=== PATIENT | male | born 1980 | race Two or more races ===

== ENCOUNTER → 2016-03-24 | Outpatient (CLI) | payer BC ==
[~2016-03-24] MED LIST: CONTRAST GIVEN MC PRN; IOHEXOL 240 MG/ML 50ML VIAL. PO ONE
--- NOTE | 2016-03-25 09:04 | RAD ---
EXAM: Abdomen and pelvis CT without intravenous contrast. HISTORY: Hernia. TECHNIQUE: Computed tomographic images of the abdomen and pelvis were obtained without contrast. Multiplanar reformatting was performed. COMPARISON: None. FINDINGS: Evaluation of the lower thorax is unremarkable. There is hepatomegaly and hepatic steatosis. The gallbladder, pancreas, spleen, adrenal glands and kidneys are unremarkable. No abnormally thickened or dilated loop of bowel is seen. The bladder is unremarkable. No pathologically enlarged lymph node is seen. There is a fat-containing umbilical hernia. The hernia sac measures 10 cm in maximum dimension and the ventral abdominal wall defect measures 3 cm in maximum dimension. There is minimal stranding within the herniated fat and adjacent ventral intraperitoneal fat. There are degenerative changes throughout the lumbar spine. IMPRESSION: 1. Fat-containing umbilical hernia measuring 10 cm in maximum dimension. There is slight fatty stranding within the hernia sac and ventral peritoneum which is not clearly within limits to suggest fat ischemia/infarction. No herniated bowel is seen. 2. Hepatomegaly and hepatic steatosis. 3. Limited exam due to body habitus. PQRS Compliance Statement: One or more of the following individualized dose reduction techniques were utilized for this examination: 1. Automated exposure control 2. Adjustment of the mA and/or kV according to patient size 3. Use of iterative reconstruction technique
== END | disposition home or self-care (01) ==
LOC: CT 16:34
PROVIDERS: ATTEND Specialist
DX: K43.6 Other and unspecified ventral hernia with obstruction, without gangrene (principal)
CPT/HCPCS: 74176; Q9966

== ENCOUNTER 2016-04-14 07:01 | Observation (INO) | payer BC ==
--- NOTE | 2016-04-13 14:38 | HP ---
ADMIT DATE: 04/14/2016 HISTORY OF PRESENT ILLNESS: The patient is referred by ____ Lety because of a painful abdominal wall mass. Apparently, the patient has had a hernia for some years and he has noted it had been there, but ____ more pain, tenderness at this point, does have some indigestion at times. Otherwise, he is doing relatively well, but does have this discomfort at the umbilicus and around the upper area above the umbilicus. PAST MEDICAL HISTORY: Shows normal childhood diseases. He has never had surgery, does have diabetes for which he takes oral hypoglycemics and takes medicine for hypertension. ALLERGIES: As stated before he has no allergies. PAST SURGICAL HISTORY: Has never had surgery. FAMILY HISTORY: Positive for hypertension. His mother apparently had renal failure with a kidney transplant. SOCIAL HISTORY: Shows that he is . He does not smoke, drinks only socially, may be once or twice a month and not enough to get inebriated. Does not use any illicit drugs. PHYSICAL EXAMINATION: GENERAL: Shows a morbidly obese male in no acute distress. HEAD, EYES, NOSE AND THROAT: Grossly normal. LUNGS: Clear bilaterally to auscultation. HEART: Had no murmurs, heaves, friction rubs or thrills and had a rate of 74 beats minute and it was regular. ABDOMEN: Did show a nonreducible mass in the mid abdomen. It was minimally tender, but he did not have an acute abdomen. Otherwise, the abdomen was soft. It was quite obese, however, but was soft and had no evidence of guarding, rebound or acute abdominal signs. GENITALIA: Normal male genitalia. No inguinal hernias. EXTREMITIES: Grossly normal. IMPRESSION: 1. Incarcerated ventral hernia. 2. Hypertension. 3. Diabetes. 4. Morbid obesity. TOMAS ORANTES MD DR: BAR/nts JOB#: [id number] / [id number] TOMAS Stephens MD
[~2016-04-14] VITALS: Ht 170.2 cm; Wt 182.8 kg
[2016-04-14] VITALS (10 sets, daily range): BP systolic 132–159; BP diastolic 66–88
[~2016-04-14 07:01] MED LIST changes: +AMLO10TA2 PO; +CEFAZOLIN 2GM PREMIX 50 ML IV PRN; -CONTRAST GIVEN MC PRN; +FENTANYL PF 100 MCG/2 ML VIAL. IV PRN; +HYDROMORPHONE 2 MG/ML VIAL. IV PRN; -IOHEXOL 240 MG/ML 50ML VIAL. PO ONE; +IV RINGERS,LACTATED 1000ML 1,000 ML IV SCH; +LIDOCAINE 1% 1 ML SYRINGE. ID PRN; +METF10002 PO; +METRONIDAZOLE 500mg PREMIX 100 ML IV PRN; +MORPHINE SULFATE 2 MG/ML DISP.SYRIN. IV PRN; +ONDANSETRON PF 4 MG/2 ML VIAL. IV PRN; +PROCHLORPERAZINE 10 MG/2 ML VIAL. IV PRN
[2016-04-14 07:56] LABS: BASO # 0.1 x10^3/uL (0.0-0.2); BASO % 1 % (0-3); EOS % 4 % (0-3); HEMATOCRIT 41.4 % (39.0-53.0); HEMOGLOBIN 12.9 g/dL (13.0-17.5); LYMPH # 1.8 x10^3/uL (1.0-4.8); LYMPH % 24 % (24-48); MEAN CORPUSCULAR HEMOGLOBIN 26 pg (25-35); MEAN CORPUSCULAR HGB CONC 31 g/dL (31-37); MEAN CORPUSCULAR VOLUME 83 fL (79-100); MONO % 7 % (0-9); NEUT % 64 % (31-73); PLATELET COUNT 158 x10^3/uL (140-400); RED BLOOD COUNT 4.98 x10^6/uL (4.30-5.70); RED CELL DISTRIBUTION WIDTH 13.1 % (11.5-14.5); WHITE BLOOD COUNT 7.8 x10^3/uL (4.0-11.0)
[2016-04-14] MEDS ORDERED: BUPIVAC MPF-EPI 0.5%-1:200000 30 ML VIAL. ONE ×2 (07:59→11:41)
[2016-04-14 08:08] LABS: CALCIUM 8.9 mg/dL (8.5-10.1); CREATININE 0.6 mg/dL (0.7-1.3); GFR 152.4; POTASSIUM 3.7 mmol/L (3.5-5.1)
[2016-04-14 08:13] LABS: ALBUMIN 3.3 g/dL (3.4-5.0); ALBUMIN/GLOBULIN RATIO 0.8 (1.0-1.7); TOTAL BILIRUBIN 0.4 mg/dL (0.2-1.0); TOTAL PROTEIN 7.5 g/dL (6.4-8.2)
[2016-04-14 08:24] LABS: INR 1.1 (0.8-1.1); PROTHROMBIN TIME PATIENT 13.1 SEC (11.7-14.0)
[2016-04-14] MEDS ORDERED: REMIFENTANIL 2 MG VIAL. IV ONE (08:27)
[2016-04-14] MEDS ORDERED: FENTANYL PF 250 MCG/5 ML VIAL. ONE (08:27)
[2016-04-14] MEDS ORDERED: MIDAZOLAM HCL 2 MG/2 ML VIAL. ONE (08:27)
[2016-04-14] MEDS ORDERED: ROCURONIUM 50 MG/5 ML VIAL. ONE (08:29)
[2016-04-14] MEDS ORDERED: ONDANSETRON PF 4 MG/2 ML VIAL. ONE (08:29)
[2016-04-14] MEDS ORDERED: DESFLURANE > 120 MINUTES IH ONE (08:29)
[2016-04-14] MEDS ORDERED: DEXAMETHASONE SOD PHOS 20 MG/5 ML VIAL. ONE (08:29)
[2016-04-14] MEDS ORDERED: LIDOCAINE 2% 100 MG/5 ML DISP.SYRIN. ONE ×2 (08:29→11:10)
[2016-04-14] MEDS ORDERED: PROPOFOL 20 ML IV ONE (08:29)
[2016-04-14] MEDS ORDERED: GLYCOPYRROLATE 1 MG/5 ML VIAL. ONE (08:32)
--- NOTE | 2016-04-14 09:26 | PDOC ---
SURGICAL PROGRESS NOTE Subjective No change in dictated H&P. Vital Signs Vital Signs Date Time Temp Pulse Resp B/P Pulse Ox O2 Delivery O2 Flow Rate FiO2 04/14/16 07:50 97.9 91 20 138/76 94 Room Air 97.9 Labs Laboratory Tests Test 04/14/16 07:45 White Blood Count 7.8x10^3/uL (4.0-11.0) Red Blood Count 4.98x10^6/uL (4.30-5.70) Hemoglobin 12.9g/dL (13.0-17.5) Hematocrit 41.4% (39.0-53.0) Mean Corpuscular Volume 83fL (79-100) Mean Corpuscular Hemoglobin 26pg (25-35) Mean Corpuscular Hemoglobin Concent 31g/dL (31-37) Red Cell Distribution Width 13.1% (11.5-14.5) Platelet Count 158x10^3/uL (140-400) Neutrophils (%) (Auto) 64% (31-73) Lymphocytes (%) (Auto) 24% (24-48) Monocytes (%) (Auto) 7% (0-9) Eosinophils (%) (Auto) 4% (0-3) Basophils (%) (Auto) 1% (0-3) Neutrophils # (Auto) 5.0x10^3uL (1.8-7.7) Lymphocytes # (Auto) 1.8x10^3/uL (1.0-4.8) Monocytes # (Auto) 0.5x10^3/uL (0.0-1.1) Eosinophils # (Auto) 0.3x10^3/uL (0.0-0.7) Basophils # (Auto) 0.1x10^3/uL (0.0-0.2) Prothrombin Time 13.1SEC (11.7-14.0) Prothromb Time International Ratio 1.1 (0.8-1.1) Sodium Level 139mmol/L (136-145) Potassium Level 3.7mmol/L (3.5-5.1) Chloride Level 103mmol/L (98-107) Carbon Dioxide Level 27mmol/L (21-32) Anion Gap 9 (6-14) Blood Urea Nitrogen 14mg/dL (8-26) Creatinine 0.6mg/dL (0.7-1.3) Estimated GFR (Cockcroft-Gault) 152.4 BUN/Creatinine Ratio 23 (6-20) Glucose Level 229mg/dL (70-99) Calcium Level 8.9mg/dL (8.5-10.1) Total Bilirubin 0.4mg/dL (0.2-1.0) Aspartate Amino Transf (AST/SGOT) 47U/L (15-37) Alanine Aminotransferase (ALT/SGPT) 60U/L (16-63) Alkaline Phosphatase 127U/L (46-116) Total Protein 7.5g/dL (6.4-8.2) Albumin 3.3g/dL (3.4-5.0) Albumin/Globulin Ratio 0.8 (1.0-1.7) Laboratory Tests Test 04/14/16 07:45 White Blood Count 7.8x10^3/uL (4.0-11.0) Red Blood Count 4.98x10^6/uL (4.30-5.70) Hemoglobin 12.9g/dL (13.0-17.5) Hematocrit 41.4% (39.0-53.0) Mean Corpuscular Volume 83fL (79-100) Mean Corpuscular Hemoglobin 26pg (25-35) Mean Corpuscular Hemoglobin Concent 31g/dL (31-37) Red Cell Distribution Width 13.1% (11.5-14.5) Platelet Count 158x10^3/uL (140-400) Neutrophils (%) (Auto) 64% (31-73) Lymphocytes (%) (Auto) 24% (24-48) Monocytes (%) (Auto) 7% (0-9) Eosinophils (%) (Auto) 4% (0-3) Basophils (%) (Auto) 1% (0-3) Neutrophils # (Auto) 5.0x10^3uL (1.8-7.7) Lymphocytes # (Auto) 1.8x10^3/uL (1.0-4.8) Monocytes # (Auto) 0.5x10^3/uL (0.0-1.1) Eosinophils # (Auto) 0.3x10^3/uL (0.0-0.7) Basophils # (Auto) 0.1x10^3/uL (0.0-0.2) Prothrombin Time 13.1SEC (11.7-14.0) Prothromb Time International Ratio 1.1 (0.8-1.1) Sodium Level 139mmol/L (136-145) Potassium Level 3.7mmol/L (3.5-5.1) Chloride Level 103mmol/L (98-107) Carbon Dioxide Level 27mmol/L (21-32) Anion Gap 9 (6-14) Blood Urea Nitrogen 14mg/dL (8-26) Creatinine 0.6mg/dL (0.7-1.3) Estimated GFR (Cockcroft-Gault) 152.4 BUN/Creatinine Ratio 23 (6-20) Glucose Level 229mg/dL (70-99) Calcium Level 8.9mg/dL (8.5-10.1) Total Bilirubin 0.4mg/dL (0.2-1.0) Aspartate Amino Transf (AST/SGOT) 47U/L (15-37) Alanine Aminotransferase (ALT/SGPT) 60U/L (16-63) Alkaline Phosphatase 127U/L (46-116) Total Protein 7.5g/dL (6.4-8.2) Albumin 3.3g/dL (3.4-5.0) Albumin/Globulin Ratio 0.8 (1.0-1.7) TOMAS ORANTES MD Apr 14, 2016 09:26
--- NOTE | 2016-04-14 09:29 | PDOC ---
SURGICAL PROGRESS NOTE Subjective Op Note: Surgeon........................................Devin Pre and post op note......................incarcerated ventral hernia Anesthesia....................................general Procedure.....................................repair incarcerated ventral hernia with mesh Drains...........................................none Fluids...........................................see anesthesia sheet Blood loss.....................................15cc Condition.......................................satisfactory Vital Signs Vital Signs Date Time Temp Pulse Resp B/P Pulse Ox O2 Delivery O2 Flow Rate FiO2 04/14/16 07:50 97.9 91 20 138/76 94 Room Air 97.9 Labs Laboratory Tests Test 04/14/16 07:45 White Blood Count 7.8x10^3/uL (4.0-11.0) Red Blood Count 4.98x10^6/uL (4.30-5.70) Hemoglobin 12.9g/dL (13.0-17.5) Hematocrit 41.4% (39.0-53.0) Mean Corpuscular Volume 83fL (79-100) Mean Corpuscular Hemoglobin 26pg (25-35) Mean Corpuscular Hemoglobin Concent 31g/dL (31-37) Red Cell Distribution Width 13.1% (11.5-14.5) Platelet Count 158x10^3/uL (140-400) Neutrophils (%) (Auto) 64% (31-73) Lymphocytes (%) (Auto) 24% (24-48) Monocytes (%) (Auto) 7% (0-9) Eosinophils (%) (Auto) 4% (0-3) Basophils (%) (Auto) 1% (0-3) Neutrophils # (Auto) 5.0x10^3uL (1.8-7.7) Lymphocytes # (Auto) 1.8x10^3/uL (1.0-4.8) Monocytes # (Auto) 0.5x10^3/uL (0.0-1.1) Eosinophils # (Auto) 0.3x10^3/uL (0.0-0.7) Basophils # (Auto) 0.1x10^3/uL (0.0-0.2) Prothrombin Time 13.1SEC (11.7-14.0) Prothromb Time International Ratio 1.1 (0.8-1.1) Sodium Level 139mmol/L (136-145) Potassium Level 3.7mmol/L (3.5-5.1) Chloride Level 103mmol/L (98-107) Carbon Dioxide Level 27mmol/L (21-32) Anion Gap 9 (6-14) Blood Urea Nitrogen 14mg/dL (8-26) Creatinine 0.6mg/dL (0.7-1.3) Estimated GFR (Cockcroft-Gault) 152.4 BUN/Creatinine Ratio 23 (6-20) Glucose Level 229mg/dL (70-99) Calcium Level 8.9mg/dL (8.5-10.1) Total Bilirubin 0.4mg/dL (0.2-1.0) Aspartate Amino Transf (AST/SGOT) 47U/L (15-37) Alanine Aminotransferase (ALT/SGPT) 60U/L (16-63) Alkaline Phosphatase 127U/L (46-116) Total Protein 7.5g/dL (6.4-8.2) Albumin 3.3g/dL (3.4-5.0) Albumin/Globulin Ratio 0.8 (1.0-1.7) Laboratory Tests Test 2/17/17 07:45 White Blood Count 7.8x10^3/uL (4.0-11.0) Red Blood Count 4.98x10^6/uL (4.30-5.70) Hemoglobin 12.9g/dL (13.0-17.5) Hematocrit 41.4% (39.0-53.0) Mean Corpuscular Volume 83fL (79-100) Mean Corpuscular Hemoglobin 26pg (25-35) Mean Corpuscular Hemoglobin Concent 31g/dL (31-37) Red Cell Distribution Width 13.1% (11.5-14.5) Platelet Count 158x10^3/uL (140-400) Neutrophils (%) (Auto) 64% (31-73) Lymphocytes (%) (Auto) 24% (24-48) Monocytes (%) (Auto) 7% (0-9) Eosinophils (%) (Auto) 4% (0-3) Basophils (%) (Auto) 1% (0-3) Neutrophils # (Auto) 5.0x10^3uL (1.8-7.7) Lymphocytes # (Auto) 1.8x10^3/uL (1.0-4.8) Monocytes # (Auto) 0.5x10^3/uL (0.0-1.1) Eosinophils # (Auto) 0.3x10^3/uL (0.0-0.7) Basophils # (Auto) 0.1x10^3/uL (0.0-0.2) Prothrombin Time 13.1SEC (11.7-14.0) Prothromb Time International Ratio 1.1 (0.8-1.1) Sodium Level 139mmol/L (136-145) Potassium Level 3.7mmol/L (3.5-5.1) Chloride Level 103mmol/L (98-107) Carbon Dioxide Level 27mmol/L (21-32) Anion Gap 9 (6-14) Blood Urea Nitrogen 14mg/dL (8-26) Creatinine 0.6mg/dL (0.7-1.3) Estimated GFR (Cockcroft-Gault) 152.4 BUN/Creatinine Ratio 23 (6-20) Glucose Level 229mg/dL (70-99) Calcium Level 8.9mg/dL (8.5-10.1) Total Bilirubin 0.4mg/dL (0.2-1.0) Aspartate Amino Transf (AST/SGOT) 47U/L (15-37) Alanine Aminotransferase (ALT/SGPT) 60U/L (16-63) Alkaline Phosphatase 127U/L (46-116) Total Protein 7.5g/dL (6.4-8.2) Albumin 3.3g/dL (3.4-5.0) Albumin/Globulin Ratio 0.8 (1.0-1.7) TOMAS ORANTES MD Apr 14, 2016 09:29
[2016-04-14] MEDS ORDERED: PHENYLEPHRINE in 0.9% NACL PF 1 MG/10 ML DISP.SYRIN. IV ONE (09:41)
[2016-04-14] MEDS ORDERED: NEOSTIGMINE METHYLSULFATE 5 MG/5 ML SYRINGE. ONE (10:22)
[2016-04-14] MEDS ORDERED: CEFAZOLIN PREMIX 2 GM/50 ML BAG. IV ONE (11:37)
[2016-04-14] MEDS ORDERED: REMIFENTANIL 1 MG VIAL. IV ONE (11:54)
[2016-04-14] MEDS ORDERED: 0.9 % SODIUM CHLORIDE 10 ML DISP.SYRIN. IV PRN (12:45)
[2016-04-14] MEDS ORDERED: HYDROMORPHONE STANDARD PCA 30 ML IV PRN (12:45)
[2016-04-14] MEDS ORDERED: ONDANSETRON PF 4 MG/2 ML VIAL. IV PRN (12:45)
[2016-04-14] MEDS ORDERED: INSULIN ASPART 100 UNIT/ML 10ML VIAL. SQ ONE (12:47)
[2016-04-14] MEDS ORDERED: ALBUTEROL SULFATE 2.5 MG/3 ML NEBU. ONE (12:56)
[2016-04-14] MEDS ORDERED: ACETAMINOPHEN INTRAVENOUS 100 ML IV ONE (13:13)
[2016-04-14] MEDS ORDERED: ALBUTEROL SULFATE 2.5 MG/3 ML NEBU. NEB PRN (13:15)
[2016-04-14] MEDS ORDERED: INSULIN ASPART 100 UNIT/ML 10ML VIAL. SQ PRN (13:15)
[2016-04-14] MEDS: POTASSIUM CL 20MEQ-0.45% NACL 1,000 ML IV SCH ×2 (16:48→22:31)
[2016-04-14] MEDS: CEFAZOLIN 2GM PREMIX 50 ML IV SCH (18:05)
[2016-04-14] MEDS ORDERED: HYDR-2762 PO (18:22)
[2016-04-14] MEDS ORDERED: GLIM4TAB2 PO (18:22)
[2016-04-14] MEDS ORDERED: MELO-150 PO (18:22)
--- NOTE | 2016-04-14 19:09 | PDOC ---
PULMONARY PROGRESS NOTES Vitals Vital Signs Date Time Temp Pulse Resp B/P Pulse Ox O2 Delivery O2 Flow Rate FiO2 04/14/16 19:00 98.9 108 20 139/78 95 Nasal Cannula 4.0 98.9 Labs Laboratory Tests Test 04/14/16 07:45 04/14/16 12:39 04/14/16 14:00 White Blood Count 7.8x10^3/uL (4.0-11.0) Red Blood Count 4.98x10^6/uL (4.30-5.70) Hemoglobin 12.9g/dL (13.0-17.5) Hematocrit 41.4% (39.0-53.0) Mean Corpuscular Volume 83fL (79-100) Mean Corpuscular Hemoglobin 26pg (25-35) Mean Corpuscular Hemoglobin Concent 31g/dL (31-37) Red Cell Distribution Width 13.1% (11.5-14.5) Platelet Count 158x10^3/uL (140-400) Neutrophils (%) (Auto) 64% (31-73) Lymphocytes (%) (Auto) 24% (24-48) Monocytes (%) (Auto) 7% (0-9) Eosinophils (%) (Auto) 4% (0-3) Basophils (%) (Auto) 1% (0-3) Neutrophils # (Auto) 5.0x10^3uL (1.8-7.7) Lymphocytes # (Auto) 1.8x10^3/uL (1.0-4.8) Monocytes # (Auto) 0.5x10^3/uL (0.0-1.1) Eosinophils # (Auto) 0.3x10^3/uL (0.0-0.7) Basophils # (Auto) 0.1x10^3/uL (0.0-0.2) Prothrombin Time 13.1SEC (11.7-14.0) Prothromb Time International Ratio 1.1 (0.8-1.1) Sodium Level 139mmol/L (136-145) Potassium Level 3.7mmol/L (3.5-5.1) Chloride Level 103mmol/L (98-107) Carbon Dioxide Level 27mmol/L (21-32) Anion Gap 9 (6-14) Blood Urea Nitrogen 14mg/dL (8-26) Creatinine 0.6mg/dL (0.7-1.3) Estimated GFR (Cockcroft-Gault) 152.4 BUN/Creatinine Ratio 23 (6-20) Glucose Level 229mg/dL (70-99) Calcium Level 8.9mg/dL (8.5-10.1) Total Bilirubin 0.4mg/dL (0.2-1.0) Aspartate Amino Transf (AST/SGOT) 47U/L (15-37) Alanine Aminotransferase (ALT/SGPT) 60U/L (16-63) Alkaline Phosphatase 127U/L (46-116) Total Protein 7.5g/dL (6.4-8.2) Albumin 3.3g/dL (3.4-5.0) Albumin/Globulin Ratio 0.8 (1.0-1.7) Glucose (Fingerstick) 216mg/dL (70-99) 264mg/dL (70-99) Laboratory Tests Test 04/14/16 07:45 04/14/16 12:39 04/14/16 14:00 White Blood Count 7.8x10^3/uL (4.0-11.0) Red Blood Count 4.98x10^6/uL (4.30-5.70) Hemoglobin 12.9g/dL (13.0-17.5) Hematocrit 41.4% (39.0-53.0) Mean Corpuscular Volume 83fL (79-100) Mean Corpuscular Hemoglobin 26pg (25-35) Mean Corpuscular Hemoglobin Concent 31g/dL (31-37) Red Cell Distribution Width 13.1% (11.5-14.5) Platelet Count 158x10^3/uL (140-400) Neutrophils (%) (Auto) 64% (31-73) Lymphocytes (%) (Auto) 24% (24-48) Monocytes (%) (Auto) 7% (0-9) Eosinophils (%) (Auto) 4% (0-3) Basophils (%) (Auto) 1% (0-3) Neutrophils # (Auto) 5.0x10^3uL (1.8-7.7) Lymphocytes # (Auto) 1.8x10^3/uL (1.0-4.8) Monocytes # (Auto) 0.5x10^3/uL (0.0-1.1) Eosinophils # (Auto) 0.3x10^3/uL (0.0-0.7) Basophils # (Auto) 0.1x10^3/uL (0.0-0.2) Prothrombin Time 13.1SEC (11.7-14.0) Prothromb Time International Ratio 1.1 (0.8-1.1) Sodium Level 139mmol/L (136-145) Potassium Level 3.7mmol/L (3.5-5.1) Chloride Level 103mmol/L (98-107) Carbon Dioxide Level 27mmol/L (21-32) Anion Gap 9 (6-14) Blood Urea Nitrogen 14mg/dL (8-26) Creatinine 0.6mg/dL (0.7-1.3) Estimated GFR (Cockcroft-Gault) 152.4 BUN/Creatinine Ratio 23 (6-20) Glucose Level 229mg/dL (70-99) Calcium Level 8.9mg/dL (8.5-10.1) Total Bilirubin 0.4mg/dL (0.2-1.0) Aspartate Amino Transf (AST/SGOT) 47U/L (15-37) Alanine Aminotransferase (ALT/SGPT) 60U/L (16-63) Alkaline Phosphatase 127U/L (46-116) Total Protein 7.5g/dL (6.4-8.2) Albumin 3.3g/dL (3.4-5.0) Albumin/Globulin Ratio 0.8 (1.0-1.7) Glucose (Fingerstick) 216mg/dL (70-99) 264mg/dL (70-99) Medications Active Scripts Medications Dose Route/Sig Days Date Category Hydrocodone-Apap 7.5-325 (Hydrocodone Bit/Acetaminophen) 1 Each Tablet 1 Tab PO PRN Q6HRS PRN 04/14/16 Reported Meloxicam 15 Mg Tablet 1 Tab PO PRN DAILY PRN 04/14/16 Reported Glimepiride 4 Mg Tablet 1 Tab PO BID 04/14/16 Reported Amlodipine Besylate 10 Mg Tablet 10 Mg PO QHS 04/13/16 Reported Metformin Hcl 1,000 Mg Tablet 1 Tab PO BID 04/13/16 Reported Impression . [id number] FALGUNI EXPECTED POST OP RESP FAILUE 6 MIN WALK IN AM D/C IN AM FOLLOW UP WITH ME FOR OUT PT SLEEP STUDY CARLO CASTILLO MD Apr 14, 2016 19:09
[2016-04-14] MEDS: FAMOTIDINE 20 MG/2 ML VIAL IVP SCH (21:09)
[2016-04-15] MEDS: CEFAZOLIN 2GM PREMIX 50 ML IV SCH ×2 (00:17→08:25)
[2016-04-15] MEDS: POTASSIUM CL 20MEQ-0.45% NACL 1,000 ML IV SCH (02:47)
[2016-04-15 03:39] VITALS: BP 120/70
[2016-04-15 03:41] VITALS: BP 111/65
[2016-04-15 06:51] LABS: BASO % 0 % (0-3); EOS % 0 % (0-3); HEMATOCRIT 39.6 % (39.0-53.0); HEMOGLOBIN 12.4 g/dL (13.0-17.5); LYMPH # 1.9 x10^3/uL (1.0-4.8); LYMPH % 19 % (24-48); MEAN CORPUSCULAR HEMOGLOBIN 26 pg (25-35); MEAN CORPUSCULAR HGB CONC 31 g/dL (31-37); MEAN CORPUSCULAR VOLUME 83 fL (79-100); MONO % 10 % (0-9); NEUT % 70 % (31-73); PLATELET COUNT 168 x10^3/uL (140-400); RED CELL DISTRIBUTION WIDTH 13.1 % (11.5-14.5)
--- NOTE | 2016-04-15 06:59 | OP ---
DATE OF SURGERY: 04/14/2016 SURGEON: Michael Orantes M.D. PREOPERATIVE DIAGNOSIS: Incarcerated ventral hernia. POSTOPERATIVE DIAGNOSIS: Incarcerated ventral hernia x 3, the middle one being the largest. ANESTHESIA: General. PROCEDURE: Repair of 3 incarcerated ventral hernias. TECHNIQUE: Within under general anesthesia, the patient was properly prepped and draped in routine fashion. We made a longitudinal incision from above the umbilicus by about 3 inches around the right side of the umbilicus down about 1 cm or 2 past the umbilicus. We carried this down through the skin with a 15 blade and then used cautery to go through the subQ. Near the umbilicus and ____ abdominal part of the incision, there was obviously not much room between the subQ and the sac. We used Metzenbaum scissors, finger dissection knife and cut the sac away from the surrounding tissues and also pushed it away. We encircled it. It was obvious there was another sac superiorly and one inferior to this. We mobilized all we could, took it off the anterior abdominal wall and there were fairly large veins there. We made certain that we cauterized them. One area had been clamped and tied with 2-0 Vicryl. We slowly mobilized the sac and we decided it would be better to open the sac and we did very ____. There was omentum in the sac, but no bowel, but it was incarcerated. We could not reduce it and when we did, we extended the incision superiorly as we could feel under the fascia another defect there and opened that up so that we ____ expose the hernia above it and also the small one below it. This having been done, we were then able to free the contents of the sac up from the sac and surrounding tissues and simply inverted. There was nothing against the anterior abdominal wall luckily. As such, we then were able to have everything freed and we grasped the superior and inferior portions of the fascia and also the lateral one with Myles clamps. We pulled these up and it was felt that we had good free anterior abdominal wall. The incision total was about 5-6 cm and we put an 11 x 8 cm piece of mesh there. We did tack it to the anterior abdominal wall using a tacker superiorly, inferiorly, then laterally and then around it. The tacker was in place and the mesh was against the anterior abdominal wall. We did use the mesh that had Seprafilm on one side and lying against it was no bowel as we did not see the intestine; this was all omentum. The patient was quite large, being over 400 pounds and we simply knew that this would be a problematic closure and that is why we wanted to use the mesh. We did use a #1 Prolene and sutured this and put these in the wound, starting from below and above the incision and incorporating the portion of the mesh in this. This was all in good location, all was well and we then tied these. The wound was then inspected and we did inject 0.5% Marcaine with epinephrine and then were able to irrigate the subQ and then approximated the subQ in many layers using 4-0 Vicryl. The subQ was very thick as he is quite obese and as such, this was done. We placed a small Bill drain and brought it out through the inferior portion of the wound and sutured it in place using 2-0 silk. This having been done, we inspected the area and the skin was closed using the skin stapler. The procedure was now terminated as sterile dressing was applied. BLOOD LOSS: Probably 50-60 mL or more. DRAINS: Quarter inch Madison drains in the subQ. FLUIDS GIVEN: Can be obtained from the anesthesia sheet. CONDITION OF THE PATIENT: Satisfactory as he has returned to the recovery room. MICHAEL ORANTES MD DR: BAR/caitie JOB#: [id number] / [id number]
[2016-04-15 07:00] VITALS: BP 108/62
[2016-04-15 07:02] LABS: CALCIUM 8.6 mg/dL (8.5-10.1); CREATININE 0.7 mg/dL (0.7-1.3); GFR 127.6; POTASSIUM 4.5 mmol/L (3.5-5.1)
[2016-04-15 07:08] LABS: ALBUMIN/GLOBULIN RATIO 0.8 (1.0-1.7); TOTAL BILIRUBIN 0.5 mg/dL (0.2-1.0); TOTAL PROTEIN 6.6 g/dL (6.4-8.2)
--- NOTE | 2016-04-15 07:27 | CONS ---
DATE OF CONSULTATION: 04/14/2016 ATTENDING PHYSICIAN: Dr. Michael Beltran. REASON FOR CONSULTATION: The patient is seen in pulmonary consultation at the request of Dr. Beltran for hypoxemia and possible FALGUNI. HISTORY OF PRESENT ILLNESS: The patient is a 35-year-old morbid obese individual that came in with a painful abdominal wall mass. He underwent surgical intervention for repair of incarcerated ventral hernia with mesh. After surgery, he had some hypoxemia. I was asked to see him in consultation. The patient does not normally wear oxygen at home. He has a history of childhood asthma, but currently not having any issues. He has not been hospitalized with pneumonia or bronchitis. He does not smoke. His is at the bedside. She states that he snores. He has periods of apnea. The patient awakens unrefreshed from sleep. He also has some mild excessive daytime sleepiness. PAST MEDICAL HISTORY: Asthma as a child, diabetes, and hypertension. ALLERGIES: No known drug allergies. PAST SURGICAL HISTORY: None prior to this episode. FAMILY HISTORY: Hypertension, renal failure. Mother with kidney transplant. SOCIAL HISTORY: He is , does not smoke, occasional alcohol. REVIEW OF SYSTEMS: As indicated above, otherwise the 10-point system was reviewed and negative. PHYSICAL EXAMINATION: GENERAL: Morbid obese individual with a body mass index of 63.1 kg/m2. HEENT: Eyes, the sclerae were nonicteric. NECK: Jugular venous distention could not be assessed secondary to body habitus. LUNGS: Adequate airway flow, no wheezes. CARDIOVASCULAR: Regular rate and rhythm with S1, S2, no S3. ABDOMEN: Obese. Soft, nontender, nondistended. EXTREMITIES: Obese. No clubbing. NEUROLOGIC: The patient was awake, alert, following commands. A detailed neuro exam was not performed. LABORATORY DATA: Reviewed. They were all normal except for glucose being elevated, alkaline phosphatase being elevated, and albumin was slightly low. IMPRESSION: 1. Clinical presentation compatible with obstructive sleep apnea. 2. Hypoxemia secondary to morbid obesity and shunting. 3. Expected acute respiratory failure status post hernia repair. 4. Hypertension. 5. Morbid obesity with body mass index of 63.1. 6. Hypertension. PLAN: 1. Six-minute walk prior to discharge. 2. Outpatient polysomnogram. 3. I spoke with the patient about the importance of weight reduction program. 4. Case was discussed with Dr. Beltran and his . CARLO CASTILLO MD DR: Luis A JOB#: [id number] / [id number]
--- NOTE | 2016-04-15 07:39 | PDOC ---
PULMONARY PROGRESS NOTES Subjective has slight sob, no cough, has abd pain, has eds, snoring Vitals Vital Signs Date Time Temp Pulse Resp B/P Pulse Ox O2 Delivery O2 Flow Rate FiO2 04/15/16 07:11 Nasal Cannula 4.0 04/15/16 03:41 99.7 77 18 111/65 98 99.7 Comments ros as mentioned as above, other sys otherwise neg ROS: No Nausea General: Alert, Oriented X4 HEENT: Other (nc at perrl, shalloworopharynx) Lungs: Clear Cardiovascular: S1, S2 Abdomen: Soft Neuro Exam: Alert, Oriented Extremities: No Edema Skin: Warm Labs Laboratory Tests Test 04/14/16 07:45 04/14/16 12:39 04/14/16 14:00 04/15/16 06:10 White Blood Count 7.8x10^3/uL (4.0-11.0) 10.0x10^3/uL (4.0-11.0) Red Blood Count 4.98x10^6/uL (4.30-5.70) 4.80x10^6/uL (4.30-5.70) Hemoglobin 12.9g/dL (13.0-17.5) 12.4g/dL (13.0-17.5) Hematocrit 41.4% (39.0-53.0) 39.6% (39.0-53.0) Mean Corpuscular Volume 83fL (79-100) 83fL (79-100) Mean Corpuscular Hemoglobin 26pg (25-35) 26pg (25-35) Mean Corpuscular Hemoglobin Concent 31g/dL (31-37) 31g/dL (31-37) Red Cell Distribution Width 13.1% (11.5-14.5) 13.1% (11.5-14.5) Platelet Count 158x10^3/uL (140-400) 168x10^3/uL (140-400) Neutrophils (%) (Auto) 64% (31-73) 70% (31-73) Lymphocytes (%) (Auto) 24% (24-48) 19% (24-48) Monocytes (%) (Auto) 7% (0-9) 10% (0-9) Eosinophils (%) (Auto) 4% (0-3) 0% (0-3) Basophils (%) (Auto) 1% (0-3) 0% (0-3) Neutrophils # (Auto) 5.0x10^3uL (1.8-7.7) 7.0x10^3uL (1.8-7.7) Lymphocytes # (Auto) 1.8x10^3/uL (1.0-4.8) 1.9x10^3/uL (1.0-4.8) Monocytes # (Auto) 0.5x10^3/uL (0.0-1.1) 1.0x10^3/uL (0.0-1.1) Eosinophils # (Auto) 0.3x10^3/uL (0.0-0.7) 0.0x10^3/uL (0.0-0.7) Basophils # (Auto) 0.1x10^3/uL (0.0-0.2) 0.0x10^3/uL (0.0-0.2) Prothrombin Time 13.1SEC (11.7-14.0) Prothromb Time International Ratio 1.1 (0.8-1.1) Sodium Level 139mmol/L (136-145) 141mmol/L (136-145) Potassium Level 3.7mmol/L (3.5-5.1) 4.5mmol/L (3.5-5.1) Chloride Level 103mmol/L (98-107) 104mmol/L (98-107) Carbon Dioxide Level 27mmol/L (21-32) 31mmol/L (21-32) Anion Gap 9 (6-14) 6 (6-14) Blood Urea Nitrogen 14mg/dL (8-26) 8mg/dL (8-26) Creatinine 0.6mg/dL (0.7-1.3) 0.7mg/dL (0.7-1.3) Estimated GFR (Cockcroft-Gault) 152.4 127.6 BUN/Creatinine Ratio 23 (6-20) 11 (6-20) Glucose Level 229mg/dL (70-99) 200mg/dL (70-99) Calcium Level 8.9mg/dL (8.5-10.1) 8.6mg/dL (8.5-10.1) Total Bilirubin 0.4mg/dL (0.2-1.0) 0.5mg/dL (0.2-1.0) Aspartate Amino Transf (AST/SGOT) 47U/L (15-37) 31U/L (15-37) Alanine Aminotransferase (ALT/SGPT) 60U/L (16-63) 51U/L (16-63) Alkaline Phosphatase 127U/L (46-116) 73U/L (46-116) Total Protein 7.5g/dL (6.4-8.2) 6.6g/dL (6.4-8.2) Albumin 3.3g/dL (3.4-5.0) 3.0g/dL (3.4-5.0) Albumin/Globulin Ratio 0.8 (1.0-1.7) 0.8 (1.0-1.7) Glucose (Fingerstick) 216mg/dL (70-99) 264mg/dL (70-99) Laboratory Tests Test 04/14/16 07:45 04/14/16 12:39 04/14/16 14:00 04/15/16 06:10 White Blood Count 7.8x10^3/uL (4.0-11.0) 10.0x10^3/uL (4.0-11.0) Red Blood Count 4.98x10^6/uL (4.30-5.70) 4.80x10^6/uL (4.30-5.70) Hemoglobin 12.9g/dL (13.0-17.5) 12.4g/dL (13.0-17.5) Hematocrit 41.4% (39.0-53.0) 39.6% (39.0-53.0) Mean Corpuscular Volume 83fL (79-100) 83fL (79-100) Mean Corpuscular Hemoglobin 26pg (25-35) 26pg (25-35) Mean Corpuscular Hemoglobin Concent 31g/dL (31-37) 31g/dL (31-37) Red Cell Distribution Width 13.1% (11.5-14.5) 13.1% (11.5-14.5) Platelet Count 158x10^3/uL (140-400) 168x10^3/uL (140-400) Neutrophils (%) (Auto) 64% (31-73) 70% (31-73) Lymphocytes (%) (Auto) 24% (24-48) 19% (24-48) Monocytes (%) (Auto) 7% (0-9) 10% (0-9) Eosinophils (%) (Auto) 4% (0-3) 0% (0-3) Basophils (%) (Auto) 1% (0-3) 0% (0-3) Neutrophils # (Auto) 5.0x10^3uL (1.8-7.7) 7.0x10^3uL (1.8-7.7) Lymphocytes # (Auto) 1.8x10^3/uL (1.0-4.8) 1.9x10^3/uL (1.0-4.8) Monocytes # (Auto) 0.5x10^3/uL (0.0-1.1) 1.0x10^3/uL (0.0-1.1) Eosinophils # (Auto) 0.3x10^3/uL (0.0-0.7) 0.0x10^3/uL (0.0-0.7) Basophils # (Auto) 0.1x10^3/uL (0.0-0.2) 0.0x10^3/uL (0.0-0.2) Prothrombin Time 13.1SEC (11.7-14.0) Prothromb Time International Ratio 1.1 (0.8-1.1) Sodium Level 139mmol/L (136-145) 141mmol/L (136-145) Potassium Level 3.7mmol/L (3.5-5.1) 4.5mmol/L (3.5-5.1) Chloride Level 103mmol/L (98-107) 104mmol/L (98-107) Carbon Dioxide Level 27mmol/L (21-32) 31mmol/L (21-32) Anion Gap 9 (6-14) 6 (6-14) Blood Urea Nitrogen 14mg/dL (8-26) 8mg/dL (8-26) Creatinine 0.6mg/dL (0.7-1.3) 0.7mg/dL (0.7-1.3) Estimated GFR (Cockcroft-Gault) 152.4 127.6 BUN/Creatinine Ratio 23 (6-20) 11 (6-20) Glucose Level 229mg/dL (70-99) 200mg/dL (70-99) Calcium Level 8.9mg/dL (8.5-10.1) 8.6mg/dL (8.5-10.1) Total Bilirubin 0.4mg/dL (0.2-1.0) 0.5mg/dL (0.2-1.0) Aspartate Amino Transf (AST/SGOT) 47U/L (15-37) 31U/L (15-37) Alanine Aminotransferase (ALT/SGPT) 60U/L (16-63) 51U/L (16-63) Alkaline Phosphatase 127U/L (46-116) 73U/L (46-116) Total Protein 7.5g/dL (6.4-8.2) 6.6g/dL (6.4-8.2) Albumin 3.3g/dL (3.4-5.0) 3.0g/dL (3.4-5.0) Albumin/Globulin Ratio 0.8 (1.0-1.7) 0.8 (1.0-1.7) Glucose (Fingerstick) 216mg/dL (70-99) 264mg/dL (70-99) Medications Active Scripts Medications Dose Route/Sig Days Date Category Hydrocodone-Apap 7.5-325 (Hydrocodone Bit/Acetaminophen) 1 Each Tablet 1 Tab PO PRN Q6HRS PRN 04/14/16 Reported Meloxicam 15 Mg Tablet 1 Tab PO PRN DAILY PRN 04/14/16 Reported Glimepiride 4 Mg Tablet 1 Tab PO BID 04/14/16 Reported Amlodipine Besylate 10 Mg Tablet 10 Mg PO QHS 04/13/16 Reported Metformin Hcl 1,000 Mg Tablet 1 Tab PO BID 04/13/[address] of abd reviewed. 1. Fat-containing umbilical hernia measuring 10 cm in maximum dimension. There is slight fatty stranding within the hernia sac and ventral peritoneum which is not clearly within limits to suggest fat ischemia/infarction. No herniated bowel is seen. 2. Hepatomegaly and hepatic steatosis. 3. Limited exam due to body habitus. Impression . IMPRESSION: 1. Clinical presentation compatible with obstructive sleep apnea. 2. Hypoxemia secondary to morbid obesity and shunting. 3. Expected acute respiratory failure status post hernia repair. 4. Hypertension. 5. Morbid obesity with body mass index of 63.1. 6. Hypertension. Plan . PLAN: 1. Six-minute walk prior to discharge. 2. Outpatient polysomnogram. 3. I spoke with the patient about the importance of weight reduction program. 4. doni, the importance of diagnosis and tx were discussed 5. IS 6. not to drive if sleepy fu w dr angelo discussed w pt MOISES GOSS MD Apr 15, 2016 07:39
[2016-04-15] MEDS: FAMOTIDINE 20 MG/2 ML VIAL IVP SCH (08:25)
--- NOTE | 2016-04-15 09:52 | PDOC ---
PROGRESS NOTES Subjective Subjective POD#1 Pt seen sitting comfortably in a chair with no acute pain or distress. Pt claims he can breath without difficulty. Normal post hernia repair pain. Pt awake, alert and oriented to person time and place. Abdomen incision has normal color, temp and turgor with some minor spotting of blood and no discharge. Lungs are clear to auscultation bilaterally. No wheezing. Pt has flatus. Instructions given and will discharge. Will see in office in 4-5 days. Objective Objective Vital Signs Date Time Temp Pulse Resp B/P Pulse Ox O2 Delivery O2 Flow Rate FiO2 04/15/16 07:11 Nasal Cannula 4.0 04/15/16 07:00 98.7 67 16 108/62 97 98.7 Intake and Output 04/15/16 07:00 Intake Total 2555 ml Output Total 538 ml Balance 2017 ml IV Total 2555 ml Output Urine Total 338 ml Estimated Blood Loss 200 ml # Voids 2 Assessment Assessment Problems Medical Problems: (1) Hernia of abdominal cavity Status: Acute Comment Review of Relevant I have reviewed the following items kedar (where applicable) has been applied. Labs Laboratory Tests Test 04/14/16 07:45 04/14/16 12:39 04/14/16 14:00 04/15/16 06:10 White Blood Count 7.8x10^3/uL (4.0-11.0) 10.0x10^3/uL (4.0-11.0) Red Blood Count 4.98x10^6/uL (4.30-5.70) 4.80x10^6/uL (4.30-5.70) Hemoglobin 12.9g/dL (13.0-17.5) 12.4g/dL (13.0-17.5) Hematocrit 41.4% (39.0-53.0) 39.6% (39.0-53.0) Mean Corpuscular Volume 83fL (79-100) 83fL (79-100) Mean Corpuscular Hemoglobin 26pg (25-35) 26pg (25-35) Mean Corpuscular Hemoglobin Concent 31g/dL (31-37) 31g/dL (31-37) Red Cell Distribution Width 13.1% (11.5-14.5) 13.1% (11.5-14.5) Platelet Count 158x10^3/uL (140-400) 168x10^3/uL (140-400) Neutrophils (%) (Auto) 64% (31-73) 70% (31-73) Lymphocytes (%) (Auto) 24% (24-48) 19% (24-48) Monocytes (%) (Auto) 7% (0-9) 10% (0-9) Eosinophils (%) (Auto) 4% (0-3) 0% (0-3) Basophils (%) (Auto) 1% (0-3) 0% (0-3) Neutrophils # (Auto) 5.0x10^3uL (1.8-7.7) 7.0x10^3uL (1.8-7.7) Lymphocytes # (Auto) 1.8x10^3/uL (1.0-4.8) 1.9x10^3/uL (1.0-4.8) Monocytes # (Auto) 0.5x10^3/uL (0.0-1.1) 1.0x10^3/uL (0.0-1.1) Eosinophils # (Auto) 0.3x10^3/uL (0.0-0.7) 0.0x10^3/uL (0.0-0.7) Basophils # (Auto) 0.1x10^3/uL (0.0-0.2) 0.0x10^3/uL (0.0-0.2) Prothrombin Time 13.1SEC (11.7-14.0) Prothromb Time International Ratio 1.1 (0.8-1.1) Sodium Level 139mmol/L (136-145) 141mmol/L (136-145) Potassium Level 3.7mmol/L (3.5-5.1) 4.5mmol/L (3.5-5.1) Chloride Level 103mmol/L (98-107) 104mmol/L (98-107) Carbon Dioxide Level 27mmol/L (21-32) 31mmol/L (21-32) Anion Gap 9 (6-14) 6 (6-14) Blood Urea Nitrogen 14mg/dL (8-26) 8mg/dL (8-26) Creatinine 0.6mg/dL (0.7-1.3) 0.7mg/dL (0.7-1.3) Estimated GFR (Cockcroft-Gault) 152.4 127.6 BUN/Creatinine Ratio 23 (6-20) 11 (6-20) Glucose Level 229mg/dL (70-99) 200mg/dL (70-99) Calcium Level 8.9mg/dL (8.5-10.1) 8.6mg/dL (8.5-10.1) Total Bilirubin 0.4mg/dL (0.2-1.0) 0.5mg/dL (0.2-1.0) Aspartate Amino Transf (AST/SGOT) 47U/L (15-37) 31U/L (15-37) Alanine Aminotransferase (ALT/SGPT) 60U/L (16-63) 51U/L (16-63) Alkaline Phosphatase 127U/L (46-116) 73U/L (46-116) Total Protein 7.5g/dL (6.4-8.2) 6.6g/dL (6.4-8.2) Albumin 3.3g/dL (3.4-5.0) 3.0g/dL (3.4-5.0) Albumin/Globulin Ratio 0.8 (1.0-1.7) 0.8 (1.0-1.7) Glucose (Fingerstick) 216mg/dL (70-99) 264mg/dL (70-99) Laboratory Tests Test 04/14/16 12:39 04/14/16 14:00 04/15/16 06:10 Glucose (Fingerstick) 216mg/dL (70-99) 264mg/dL (70-99) White Blood Count 10.0x10^3/uL (4.0-11.0) Red Blood Count 4.80x10^6/uL (4.30-5.70) Hemoglobin 12.4g/dL (13.0-17.5) Hematocrit 39.6% (39.0-53.0) Mean Corpuscular Volume 83fL (79-100) Mean Corpuscular Hemoglobin 26pg (25-35) Mean Corpuscular Hemoglobin Concent 31g/dL (31-37) Red Cell Distribution Width 13.1% (11.5-14.5) Platelet Count 168x10^3/uL (140-400) Neutrophils (%) (Auto) 70% (31-73) Lymphocytes (%) (Auto) 19% (24-48) Monocytes (%) (Auto) 10% (0-9) Eosinophils (%) (Auto) 0% (0-3) Basophils (%) (Auto) 0% (0-3) Neutrophils # (Auto) 7.0x10^3uL (1.8-7.7) Lymphocytes # (Auto) 1.9x10^3/uL (1.0-4.8) Monocytes # (Auto) 1.0x10^3/uL (0.0-1.1) Eosinophils # (Auto) 0.0x10^3/uL (0.0-0.7) Basophils # (Auto) 0.0x10^3/uL (0.0-0.2) Sodium Level 141mmol/L (136-145) Potassium Level 4.5mmol/L (3.5-5.1) Chloride Level 104mmol/L (98-107) Carbon Dioxide Level 31mmol/L (21-32) Anion Gap 6 (6-14) Blood Urea Nitrogen 8mg/dL (8-26) Creatinine 0.7mg/dL (0.7-1.3) Estimated GFR (Cockcroft-Gault) 127.6 BUN/Creatinine Ratio 11 (6-20) Glucose Level 200mg/dL (70-99) Calcium Level 8.6mg/dL (8.5-10.1) Total Bilirubin 0.5mg/dL (0.2-1.0) Aspartate Amino Transf (AST/SGOT) 31U/L (15-37) Alanine Aminotransferase (ALT/SGPT) 51U/L (16-63) Alkaline Phosphatase 73U/L (46-116) Total Protein 6.6g/dL (6.4-8.2) Albumin 3.0g/dL (3.4-5.0) Albumin/Globulin Ratio 0.8 (1.0-1.7) Medications Current Medications Ondansetron HCl (Zofran) 4 mg PRN Q6HRS PRN IV Nausea; Start 04/14/16 at 07:00 ; Stop 04/15/16 at 06:59; Status DC Fentanyl Citrate (Fentanyl 2ml Vial) 25 mcg PRN Q5MIN PRN IV MILD PAIN; Start 04/14/16 at 07:00; Stop 04/15/16 at 06:59; Status DC Fentanyl Citrate (Fentanyl 2ml Vial) 50 mcg PRN Q5MIN PRN IV MODERATE PAIN Last administered on 04/14/16 13:10; Start 04/14/16 at 07:00; Stop 04/15/16 at 06:59; Status DC Morphine Sulfate 1 mg 1 mg PRN Q10MIN PRN IV SEVERE PAIN Last administered on 12:53; Start 04/14/16 at 07:00; Stop 04/15/16 at 06:59; Status DC Lactated Ringer's (Iv Lactated Ringers) 1,000 ml @ 30 mls/hr Q24H IV Last administered on 04/14/16 07:52; Start 04/14/16 at 07:00; Stop 04/14/16 at 18:59 ; Status DC Lidocaine HCl 2 ml 1X PRN PRN ID IV START; Start 04/14/16 at 07:00; Stop at 06:59; Status DC Hydromorphone HCl (Dilaudid) 0.5 mg PRN Q10MIN PRN IV SEVERE PAIN, Second choice; Start 04/14/16 at 07:00; Stop 04/15/16 at 06:59; Status DC Prochlorperazine Edisylate 5 mg 5 mg PACU PRN PRN IV NAUSEA; Start 04/14/16 at 07:00; Stop 04/15/16 at 06:59; Status DC Metronidazole 100 ml @ 100 mls/hr 1X PREOP PRN IV PRIOR TO PROCEDURE Last administered on 04/14/16 09:30; Start 04/14/16 at 06:00; Stop 04/14/16 at 18:00 ; Status DC Cefazolin Sodium/ Dextrose (Ancef 2gm Premix) 50 ml @ 100 mls/hr 1X PREOP PRN IV PRIOR TO PROCEDURE Last administered on 04/14/16 09:45; Start 04/14/16 at 06 :00; Stop 04/14/16 at 18:00; Status DC Bupivacaine HCl/ Epinephrine Bitart (Sensorcain-Mpf Epi 0.5%-1:210517) 30 ml STK -MED ONCE .ROUTE Last administered on 04/14/16t 10:11; Start 04/14/16 at 07:59 ; Stop 04/14/16 at 08:00; Status DC Midazolam HCl (Versed) 2 mg STK-MED ONCE .ROUTE ; Start 04/14/16 at 08:27; Stop 04/14/16 at 08:28; Status DC Remifentanil HCl (Ultiva) 2 mg STK-MED ONCE IV ; Start 04/14/16 at 08:27; Stop 04/14/16 at 08:28; Status DC Fentanyl Citrate (Fentanyl 5ml Vial) 250 mcg STK-MED ONCE .ROUTE ; Start at 08:27; Stop 04/14/16 at 08:28; Status DC Desflurane (Suprane) 90 ml STK-MED ONCE IH ; Start 04/14/16 at 08:29; Stop 04/14 at 08:30; Status DC Lidocaine HCl 100 mg 100 mg STK-MED ONCE .ROUTE ; Start 04/14/16 at 08:29; Stop 04/14/16 at 08:30; Status DC Propofol (Diprivan) 20 ml @ As Directed STK-MED ONCE IV ; Start 04/14/16 at 08: 29; Stop 04/14/16 at 08:30; Status DC Dexamethasone Sodium Phosphate (Decadron) 20 mg STK-MED ONCE .ROUTE ; Start at 08:29; Stop 04/14/16 at 08:30; Status DC Ondansetron HCl (Zofran) 4 mg STK-MED ONCE .ROUTE ; Start 04/14/16 at 08:29; Stop 04/14/16 at 08:30; Status DC Rocuronium Cobb (Zemuron) 50 mg STK-MED ONCE .ROUTE ; Start 04/14/16 at 08:29 ; Stop 04/14/16 at 08:30; Status DC Glycopyrrolate (Robinul) 1 mg STK-MED ONCE .ROUTE ; Start 04/14/16 at 08:32; Stop 04/14/16 at 08:33; Status DC Phenylephrine HCl 1 mg STK-MED ONCE IV ; Start 04/14/16 at 09:41; Stop 04/14/16 at 09:42; Status DC Neostigmine Methylsulfate 5 mg STK-MED ONCE .ROUTE ; Start 04/14/16 at 10:22; Stop 04/14/16 at 10:23; Status DC Lidocaine HCl 100 mg STK-MED ONCE .ROUTE ; Start 04/14/16 at 11:10; Stop at 11:11; Status DC Bupivacaine HCl/ Epinephrine Bitart (Sensorcain-Mpf Epi 0.5%-1:481927) 30 ml STK -MED ONCE .ROUTE Last administered on 04/14/16 11:42; Start 04/14/16 at 11:41 ; Stop 04/14/16 at 11:42; Status DC Remifentanil HCl (Ultiva) 1 mg STK-MED ONCE IV ; Start 04/14/16 at 11:54; Stop 04/14/16 at 11:55; Status DC Famotidine 20 mg 20 mg BID IVP Last administered on 04/15/16 08:25; Start at 21:00 Cefazolin Sodium/ Dextrose (Ancef 2gm Premix) 50 ml @ 100 mls/hr Q8H IV Last administered on 04/15/16 08:25; Start 04/14/16 at 17:00 Sodium Chloride 3 ml 3 ml QSHIFT PRN IV AFTER MEDS AND BLOOD DRAWS; Start 04/14 at 12:45 Potassium Chloride/Sodium Chloride 1,000 ml @ 100 mls/hr Q10H IV Last administered on 04/15/16 02:47; Start 04/14/16 at 12:31 Hydromorphone HCl (Dilaudid Standard [place]) 30 ml @ 0 mls/hr CONT PRN PRN IV PROTOCOL Last administered on 04/14/16 16:42; Start 04/14/16 at 12:45 Ondansetron HCl (Zofran) 4 mg PRN Q6HRS PRN IV NAUESA, 1ST CHOICE; Start at 12:45 Insulin Aspart (Novolog Vial) 100 unit STK-MED ONCE SQ ; Start 04/14/16 at 12:47 ; Stop 04/14/16 at 12:48; Status DC Albuterol Sulfate (Ventolin Neb Soln) 2.5 mg STK-MED ONCE .ROUTE ; Start at 12:56; Stop 04/14/16 at 12:57; Status DC Insulin Aspart (Novolog Vial) 5 unit 1X PACU PRN SQ HYPERGLYCEMIA Last administered on 04/14/16 13:07; Start 04/14/16 at 13:15 Albuterol Sulfate 2.5 mg 2.5 mg 1X PACU PRN NEB SHORTNESS OF BREATH Last administered on 04/14/16 13:00; Start 04/14/16 at 13:15 Acetaminophen (Ofirmev) 100 ml @ As Directed STK-MED ONCE IV ; Start 04/14/16 at 13:13; Stop 04/14/16 at 13:14; Status DC Active Scripts Active Reported Hydrocodone-Apap 7.5-325 (Hydrocodone Bit/Acetaminophen) 1 Each Tablet 1 Tab PO PRN Q6HRS PRN Meloxicam 15 Mg Tablet 1 Tab PO PRN DAILY PRN Glimepiride 4 Mg Tablet 1 Tab PO BID Amlodipine Besylate 10 Mg Tablet 10 Mg PO QHS Metformin Hcl 1,000 Mg Tablet 1 Tab PO BID Vitals/I & O Vital Sign - Last 24 Hours 04/14/16 04/14/16 04/14/16 04/14/16 12:30 12:30 12:45 12:53 Temp 100.0 100.0 Pulse 102 82 Resp 20 21 21 B/P 191/102 171/91 Pulse Ox 96 98 99 O2 Delivery Simple Mask Mask Simple Mask Simple Mask O2 Flow Rate 10 10 10 10.0 04/14/16 04/14/16 04/14/16 04/14/16 13:00 13:00 13:10 13:15 Pulse 92 100 Resp 22 20 20 B/P 164/81 160/83 Pulse Ox 94 99 93 O2 Delivery Aerosol Mask Mask Room Air Nasal Cannula O2 Flow Rate 15 10 3 04/14/16 04/14/16 04/14/16 04/14/16 13:30 13:45 14:00 14:15 Temp 98.2 98.2 98.2 98.2 Pulse 84 98 96 96 Resp 18 18 18 18 B/P 151/88 152/72 155/69 154/91 Pulse Ox 95 95 94 94 O2 Delivery Nasal Cannula Nasal Cannula Nasal Cannula Nasal Cannula O2 Flow Rate 3 3 3 3 04/14/16 04/14/16 217 04/14/16 14:30 14:30 14:30 14:45 Temp 98.6 98.6 98.6 98.6 Pulse 99 99 99 Resp 20 20 B/P 153/88 153/88 140/74 Pulse Ox 93 93 91 O2 Delivery Nasal Cannula Nasal Cannula Nasal Cannula Took O2 off O2 Flow Rate 4.0 4.0 3.0 04/14/16 04/14/16 04/14/16 04/14/16 15:00 15:15 15:30 16:00 Pulse 99 108 99 106 B/P 146/83 159/73 155/70 138/82 Pulse Ox 90 91 93 91 O2 Delivery Took O2 off Took O2 off Nasal Cannula Nasal Cannula O2 Flow Rate 4.0 2.0 04/14/16 04/14/16 04/14/16 04/14/16 16:30 16:42 17:00 17:20 Pulse 106 108 B/P 132/68 Pulse Ox 92 91 O2 Delivery Nasal Cannula Nasal Cannula Nasal Cannula Nasal Cannula O2 Flow Rate 2.0 2.0 3.0 4.0 04/14/16 04/14/16 04/14/16 04/14/16 18:00 19:00 20:00 23:29 Temp 98.9 99.0 98.9 99.0 Pulse 108 108 89 Resp 20 20 B/P 134/78 139/78 135/66 Pulse Ox 94 95 100 O2 Delivery Nasal Cannula Nasal Cannula Nasal Cannula O2 Flow Rate 4.0 4.0 4.0 04/15/16 04/15/16 04/15/16 03:41 07:00 07:11 Temp 99.7 98.7 99.7 98.7 Pulse 77 67 Resp 18 16 B/P 111/65 108/62 Pulse Ox 98 97 O2 Delivery Nasal Cannula Nasal Cannula O2 Flow Rate 4.0 4.0 Intake and Output 04/14/16 04/14/16 04/15/16 15:00 23:00 07:00 Intake Total 2200 ml 355 ml Output Total 235 ml 300 ml 3 ml Balance 1965 ml -300 ml 352 ml TOMAS ORANTES MD Apr 15, 2016 09:52
[2016-04-15 11:00] VITALS: BP 136/76
--- NOTE | 2016-04-15 19:28 | DS ---
DATE OF DISCHARGE: 04/15/2016 HOSPITAL COURSE: The patient on 04/14/2016 was admitted for repair of a ventral hernia. He is quite obese and had been having more increasing pain at the site of his ventral hernia with tenderness that could not be reduced and we decided to repair it. We did get a CT scan to make certain nothing else was going on. As such on the day of admission, he had a repair of a ventral hernia; actually he had 2 other areas nearby and these were all made into one and repaired at the same time. At any rate, we did use mesh and the procedure was terminated. Postoperatively, he had some difficulty breathing as he is quite heavy weighing about 409 pounds. He is otherwise doing well and once he completely woke up, this went away. We did have a Pulmonary doctor see him and did not suggest any changes other than evoked study ____ as an outpatient for sleep apnea and also initiate weight loss program. The patient this morning is doing well. He has no fever. White count was 10,000 and his sugar was 200, which was about what it was before. The remainder of the laboratory has not changed. He does have flatus. He is taking liquids without difficulty or problems and thus will be discharged today. He has been instructed on no strenuous activity. Family has Percocet for pain and we will see him in about 4 days to remove the drain at that time. He otherwise understands that he needs to have weight reduction and will work on that. All questions were answered and instructions were given to the patient's and mother. DIAGNOSES: 1. Morbid obesity. 2. Incarcerated ventral hernia x 3. 3. Diabetes. 4. Hypertension. TOMAS ORANTES MD DR: BAR/caitie JOB#: [id number] / [id number] TOMAS Stephens MD
--- NOTE | 2016-04-17 14:15 | PATHOLOGY ---
PATHOLOGY REPORT * * * * * * * * FINAL DIAGNOSIS: Segment of fibromembranous and fibroadipose tissue, incarcerated ventral hernia repair: - Hernia sac showing focal mild chronic inflammation and congestion. (JPM:maricarmen; d/t: 04/17/2016) REPORT ELECTRONICALLY SIGNED BY: Tate Geronimo M.D. DATE/TIME: 04/17/2016 14:15 * * * * * * * * GROSS PATHOLOGY: Received in formalin labeled "Dilshad Becerra, incarcerated ventral hernia sac," is a segment of fibromembranous tissue measuring 8.5 x 7.8 x 2.4 cm. No nodules or lesions are identified. [facility] tissue is submitted in cassette A1. (CAA:maricarmen; 04/14/2016) INITIAL CPT CODE(S): A; 17283 Professional services performed by [facility] [place] [address] Technical services performed by [facility] at [address] [place] [address] [address], [place] [address]. SPECIMEN(S) RECEIVED: A.Incarcerated ventral hernia sac CLINICAL HISTORY: Incarcerated ventral hernia PATIENT: DILSHAD BECERRA /AGE: 810/25/1980 (Age: 35) PATIENT #: [id number] ALT CASE #: SPECIMEN COLLECTION DATE: 04/14/2016 SPECIMEN RECEIVED DATE: 04/14/2016 [facility] - [address] [place] [address] - PHONE: [phone] * * * END OF REPORT * * *
== END 2016-04-15 14:48 | disposition home or self-care (01) ==
LOC: SURG 07:01 → 4 NORTH 12:31
PROVIDERS: ADMIT Specialist; ATTEND Specialist
DX: K43.6 Other and unspecified ventral hernia with obstruction, without gangrene (principal); G47.33 Obstructive sleep apnea (adult) (pediatric); R09.02 Hypoxemia; E66.01 Morbid (severe) obesity due to excess calories; I10 Essential (primary) hypertension; J95.821 Acute postprocedural respiratory failure; E11.9 Type 2 diabetes mellitus without complications; J45.909 Unspecified asthma, uncomplicated; Z68.44 Body mass index [BMI] 60.0-69.9, adult; Z82.49 Family history of ischemic heart disease and other diseases of the circulatory system; Y83.9 Surgical procedure, unspecified as the cause of abnormal reaction of the patient, or of later complication, without mention of misadventure at the time of the procedure
CPT/HCPCS: 36415; 49561; 49568; 80053; 82947; 85027; 85610; 94620; 94640; 96365; 96366; 96375; 96376; A4215; C1781; G0378; G0379; J0131; J0690; J1100; J1170; J1815; J2250; J2270; J2370; J2405; J2704; J2710; J3010; J3490; S0028; 88302